=== PATIENT | male | born 1980 ===

== ENCOUNTER 2018-09-23 21:03 | Emergency (ER) | payer SELFPAY ==
--- NOTE | 2018-09-23 21:28 | Event Note ---
ED Screening Note Date of service: 09/23/18 Time: 21:27 ED Screening Note: 38 y/o male comes in for chest pain that is burning since yesterday but today it is worst. PMH of HTN. This initial assessment/diagnostic orders/clinical plan/treatment(s) is/are subject to change based on patients health status, clinical progression and re- assessment by fellow clinical providers in the ED. Further treatment and workup at subsequent clinical providers discretion. Patient/guardian urged not to elope from the ED as their condition may be serious if not clinically assessed and managed. Initial orders include:
[2018-09-23 21:51] LABS: Basophils % (Auto) 0.6 % (0.0-1.8); Eosinophils # (Auto) 0.1 K/mm3 (0.0-0.4); Eosinophils % (Auto) 1.9 % (0.0-4.3); Hematocrit 41.3 % (35.5-45.6); Hemoglobin 14.1 gm/dl (11.8-15.2); Lymphocytes # (Auto) 2.2 K/mm3 (1.2-5.4); Lymphocytes % (Auto) 31.5 % (13.4-35.0); Mean Corpuscular HGB Conc 34 % (32-34); Mean Corpuscular Volume 87 fl (84-94); Monocytes # (Auto) 0.5 K/mm3 (0.0-0.8); Monocytes % (Auto) 6.9 % (0.0-7.3); Platelet Count 278 K/mm3 (140-440); Red Blood Count 4.76 M/mm3 (3.65-5.03); Red Cell Distribution Width 13.9 % (13.2-15.2)
[2018-09-23 22:01] LABS: Partial Thromboplastin Time 36.1 Sec. (24.2-36.6)
[2018-09-23 22:32] LABS: BUN/Creatinine Ratio 20; Blood Urea Nitrogen 16 mg/dL (9-20); Calcium 9.5 mg/dL (8.4-10.2); Hemolysis Index 3
[2018-09-23] MEDS ORDERED: ZOFRAN ORAL LIQ PO ONE (23:12)
[2018-09-23] MEDS ORDERED: ZESTRIL PO ONE (23:12)
[2018-09-23] MEDS ORDERED: PEPCID PO ONE (23:12)
[2018-09-23] MEDS ORDERED: CARAFATE PO ONE (23:12)
--- NOTE | 2018-09-23 23:13 | Emergency Department Report ---
ED Chest Pain HPI - General Chief Complaint: Chest Pain Stated Complaint: BLOOD PRESSURE Time Seen by Provider: 09/23/18 23:00 Source: patient, RN notes reviewed Mode of arrival: Ambulatory Limitations: No Limitations - History of Present Illness Initial Comments: Primary care Dr.: Dr. Ashton Past medical history: Anxiety, hypertension, question high cholesterol This is a 38-year-old gentleman. The patient is not known to this provider previously. He reports that he ran out of his lisinopril 10 mg 2 days ago. Since then he's been feeling quite anxious about it. He endorses anterior intermittent left and right-sided chest pressure and discomfort, with feeling anxious, nauseous and dizzy. The dizziness is not described as a sensation of lightheadedness or loss of consciousness. He denies DVT, pulmonary embolism risk factors. He denies sudden, thunderclap headache. Chest pain is intermittent, present for a few hours, does not radiate to the back, arms or legs. There is no vomiting, there is no diaphoresis. There is no recent aspir in consumption. No family history of DVT, pulmonary embolism, or heart disease. The chest discomfort does not have exacerbating or relieving factors. It does not radiate anywhere. It is described as pressure MD Complaint: chest pain, other -: Gradual Onset: during rest Pain Location: substernal, left chest, right chest Pain Radiation: none Severity: mild, moderate Quality: aching, other Consistency: intermittent Improves With: nothing Worsens With: nothing re: nausea Aspirin use within the Past 7 Days: (0) No - Related Data Previous Rx's Medication Instructions Recorded Last Taken Type Aspirin [Aspirin BABY CHEW TAB] 81 mg PO QDAY #30 tab.chew 09/24/18 Unknown Rx Famotidine [Pepcid] 20 mg PO BID #10 tablet 09/24/18 Unknown Rx Lisinopril [Zestril TAB] 10 mg PO QDAY #30 tablet 09/24/18 Unknown Rx Allergies Allergy/AdvReac Type Severity Reaction Status Date / Time No Known Allergies Allergy Unverified 09/23/18 21:28 Heart Score - HEART Score History: Slightly suspicious EKG: Normal Age: < 45 Risk factors: 1-2 risk factors Troponin: < normal limit HEART Score: 1 - Critical Actions Critical Actions: 0-3 pts:0.9-1.7%risk of adverse cardiac event.Candidate for discharge ED Review of Systems ROS: Stated complaint: BLOOD PRESSURE Other details as noted in HPI Constitutional: denies: fever Eyes: denies: eye discharge ENT: denies: epistaxis Respiratory: denies: cough Cardiovascular: chest pain Gastrointestinal: vomiting Genitourinary: denies: frequency Musculoskeletal: denies: back pain Skin: denies: lesions Neurological: weakness Psychiatric: anxiety ED Past Medical Hx - Past Medical History Previous Medical History?: Yes Hx Hypertension: Yes Hx Psychiatric Treatment: Yes (Anxiety) - Surgical History Past Surgical History?: Yes - Social History Smoking Status: Never Smoker Substance Use Type: None - Medications Home Medications: Home Medications Medication Instructions Recorded Confirmed Last Taken Type Aspirin [Aspirin BABY CHEW TAB] 81 mg PO QDAY #30 tab.chew 09/24/18 Unknown Rx Famotidine [Pepcid] 20 mg PO BID #10 tablet 09/24/18 Unknown Rx Lisinopril [Zestril TAB] 10 mg PO QDAY #30 tablet 09/24/18 Unknown Rx ED Physical Exam - General Limitations: No Limitations General appearance: alert, in no apparent distress - Head Head exam: Present: atraumatic, normocephalic - Eye Eye exam: Present: normal appearance, PERRL, EOMI, other (visual acuity intact to finger counting, color perception, reading at a close distance). Absent: nystagmus - ENT ENT exam: Present: normal exam, normal orophraynx, mucous membranes moist, normal external ear exam - Neck Neck exam: Present: normal inspection, full ROM. Absent: tenderness, meningismus - Respiratory Respiratory exam: Present: normal lung sounds bilaterally. Absent: respiratory distress - Cardiovascular Cardiovascular Exam: Present: regular rate, normal rhythm, normal heart sounds. Absent: bradycardia, tachycardia, irregular rhythm, systolic murmur, diastolic murmur, rubs, gallop - GI/Abdominal GI/Abdominal exam: Present: soft. Absent: distended, tenderness, guarding, rebound, rigid, pulsatile mass - Rectal Rectal exam: Present: deferred - Extremities Exam Extremities exam: Present: normal inspection, full ROM, other (2+ pulses noted in the bilateral upper, lower extremities. Compartments soft. No long bony tenderness. The pelvis is stable.). Absent: pedal edema, joint swelling, calf tenderness - Back Exam Back exam: Present: normal inspection, full ROM. Absent: tenderness, CVA tenderness (R), CVA tenderness (L), paraspinal tenderness, vertebral tenderness - Neurological Exam Neurological exam: Present: alert, normal gait (there is no pass pointing. There is normal tigg-gr-[id number]. There is a normal gait. There is negative pronator drift.), other (Extraocular movements intact. Tongue midline. No facial droop. Facial sensation intact to light touch in the V1, V2, V3 distribution bilaterally. 5 and 5 strength in 4 extremities.. Sensation is intact to light touch in 4 extremities.). Absent: motor sensory deficit - Psychiatric Psychiatric exam: Present: anxious - Skin Skin exam: Present: warm, dry, intact, normal color. Absent: rash ED Course Vital Signs 09/23/18 09/23/18 21:24 23:59 Temperature 98 F Pulse Rate 73 66 Respiratory 18 19 Rate Blood Pressure 155/106 Blood Pressure 126/91 [Left] O2 Sat by Pulse 100 96 Oximetry - Reevaluation(s) Reevaluation #1: 09/24/18 02:05 Troponin negative 2. Patient resting comfortably in no acute distress. Patient will be discharged to follow-up. GUZMAN score - Guzman Score Age > 65: (0) No Aspirin use within the Past 7 Days: (0) No 3 or more CAD Risk Factors: (0) No 2 or more Angina events in past 24 hrs: (0) No Known CAD with more than 50% Stenosis: (0) No Elevated Cardiac Markers: (0) No ST Deviation Greater than 0.5mm: (0) No GUZMAN Score: 0 ED Medical Decision Making - Lab Data Result diagrams: 09/23/18 21:32 09/23/18 21:32 Vital Signs 09/23/18 09/23/18 21:24 23:59 Temperature 98 F Pulse Rate 73 66 Respiratory 18 19 Rate Blood Pressure 155/106 Blood Pressure 126/91 [Left] O2 Sat by Pulse 100 96 Oximetry Lab Results 09/23/18 09/23/18 09/23/18 Range/Units 21:32 21:32 21:32 WBC 6.9 (4.5-11.0) K/mm3 RBC 4.76 (3.65-5.03) M/mm3 Hgb 14.1 (11.8-15.2) gm/dl Hct 41.3 (35.5-45.6) % MCV 87 (84-94) fl MCH 30 (28-32) pg MCHC 34 (32-34) % RDW 13.9 (13.2-15.2) % Plt Count 278 (140-440) K/mm3 Lymph % (Auto) 31.5 (13.4-35.0) % Porter % (Auto) 6.9 (0.0-7.3) % Eos % (Auto) 1.9 (0.0-4.3) % Baso % (Auto) 0.6 (0.0-1.8) % Lymph # 2.2 (1.2-5.4) K/mm3 Porter # 0.5 (0.0-0.8) K/mm3 Eos # 0.1 (0.0-0.4) K/mm3 Baso # 0.0 (0.0-0.1) K/mm3 Seg Neutrophils % 59.1 (40.0-70.0) % Seg Neutrophils # 4.1 (1.8-7.7) K/mm3 PT 12.9 (12.2-14.9) Sec. INR 1.00 (0.87-1.13) APTT 36.1 (24.2-36.6) Sec. Sodium 140 (137-145) mmol/L Potassium 3.7 (3.6-5.0) mmol/L Chloride 105.1 (98-107) mmol/L Carbon Dioxide 21 L (22-30) mmol/L Anion Gap 18 mmol/L BUN 16 (9-20) mg/dL Creatinine 0.8 (0.8-1.5) mg/dL Estimated GFR > 60 ml/min BUN/Creatinine Ratio 20 % Glucose 96 (75-100) mg/dL Calcium 9.5 (8.4-10.2) mg/dL Troponin T < 0.010 (0.00-0.029) ng/mL - EKG Data -: EKG Interpreted by Al EKG shows normal: sinus rhythm Rate: normal - EKG Data 09/24/18 00:26 EKG #1 shows a sinus rhythm, 70 bpm, normal axis, normal intervals, borderline high left ventricular voltage, the EKG is not consistent with ST elevation myocardial infarction. There is no prior EKG available for comparison. EKG #2 appears to be unchanged from prior. Both EKGs appeared to be within normal limits. Neither EKG consistent with ST elevation myocardial infarction. - Radiology Data Radiology results: report reviewed, image reviewed X-ray the chest is negative for acute disease - Medical Decision Making Differential diagnosis, including but not limited to: GERD, gastritis, hiatal hernia, pneumonia, anxiety, medication refill, acute coronary syndrome Assessment and plan: 38-year-old gentleman, low risk by heart score, low risk by GUZMAN score for major adverse cardiac event, not tachycardic, not tachypnea, not hypoxic, no pulmonary embolus or DVT risk factors, low risk by well's criteria, perc negative with the complaint of nausea, dizziness and chest pain. His neurologic examination is within normal limits and he walks with a steady gait. He does not appear to be ataxic. On initial evaluation he is speaking and playing on a cellular phone, and in no acute distress. Troponins negative 2. Vital signs unremarkable. EKG unremarkable 2. Patient has been observed in the emergency room for a few hours without clinical decompensation. As for this hospital's current policy and procedures, his face sheet will be faxed to one of our local cardiology practices, and he should be able to follow up within the next 2 or 3 days for outpatient cardiac risk stratification. We will also refill the patient's lisinopril prescription. Critical care attestation.: If time is entered above; I have spent that time in minutes in the direct care of this critically ill patient, excluding procedure time. ED Disposition Clinical Impression: Medication refill, Chest pain Disposition: DC-01 TO HOME OR SELFCARE Is pt being admited?: No Does the pt Need Aspirin: No Condition: Good Instructions: Chest Pain (ED) Additional Instructions: Take the medications as needed/directed. Follow up with any of the listed cardiology groups within the next 3-4 days. Patient should be contacted by [facility] cardiology to arrange close outpatient follow-up, however, if patient does not hear from them within the next 24 hours, please call the office, of [facility], of Dr Fiorella Starks, and inform the front office staff that the patient was seen here in this department for chest pain, and was instructed to follow up closely as an outpatient. Take the medications as needed, and return to the emergency room right away with Sanchez, worsening or different symptoms, or symptoms not present on the initial emergency room evaluation. Prescriptions: Aspirin [Aspirin BABY CHEW TAB] 81 mg PO QDAY #30 tab.chew Famotidine [Pepcid] 20 mg PO BID #10 tablet Lisinopril [Zestril TAB] 10 mg PO QDAY #30 tablet Referrals: [facility] MD SAMEERA [Primary Care Provider] - 3-5 Days ALICJA STARKS MD [Staff Physician] - 3-5 Days [facility] [Provider Group] - 3-5 Days [facility] [Provider Group] - 3-5 Days
--- NOTE | 2018-09-23 23:55 | XRay Report ---
CHEST 2 VIEWS INDICATION / CLINICAL INFORMATION: Chest pain for one day. COMPARISON: None available. FINDINGS: SUPPORT DEVICES: None. HEART / MEDIASTINUM: No significant abnormality. LUNGS / PLEURA: No significant pulmonary or pleural abnormality. No pneumothorax. ADDITIONAL FINDINGS: No significant additional findings. IMPRESSION: 1. No acute findings. Signer Name: Mike Carrasquillo MD Signed: 09/23/2018 11:51 PM Workstation Name: [id number]
[2018-09-24 02:23] VITALS: BP 111/84
== END 2018-09-24 02:23 | disposition home or self-care (01) ==
LOC: ED 21:03
DX: R07.9 Chest pain, unspecified (principal); F41.9 Anxiety disorder, unspecified; Z76.0 Encounter for issue of repeat prescription; I10 Essential (primary) hypertension
CPT/HCPCS: 36415; 71046; 80048; 84484; 85025; 85610; 85730; 93005; 93010; 99284; Q0162

== ENCOUNTER 2020-05-17 14:37 | Emergency (ER) | payer SELFPAY ==
[2020-05-17] MEDS ORDERED: IBUPROFEN 800 MG TAB PO ONE (16:04)
[2020-05-17] MEDS ORDERED: DIPHtheria,PERTUSSIS(ACELL),TETANUS VACCINE/PF 0.5 ML VIAL IM ONE (16:14)
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
[2020-05-17 17:01] VITALS: BP 158/95
== END 2020-05-17 17:05 | disposition home or self-care (01) ==
LOC: ED 14:37
DX: S80.212A Abrasion, left knee, initial encounter (principal); S80.211A Abrasion, right knee, initial encounter; S90.811A Abrasion, right foot, initial encounter; S20.411A Abrasion of right back wall of thorax, initial encounter; S40.812A Abrasion of left upper arm, initial encounter; S40.811A Abrasion of right upper arm, initial encounter; I10 Essential (primary) hypertension; F41.9 Anxiety disorder, unspecified; Z79.899 Other long term (current) drug therapy; V87.8XXA Person injured in other specified noncollision transport accidents involving motor vehicle (traffic), initial encounter; Y93.89 Activity, other specified; Y92.488 Other paved roadways as the place of occurrence of the external cause; Y99.8 Other external cause status
CPT/HCPCS: 90471; 90715; 99283